=== PATIENT | male | born 1945 | race Caucasian/White ===

== ENCOUNTER 2019-12-16 06:31 | Day surgery (SDC) | payer OTHER, BC ==
[2019-12-11 12:24] VITALS: BMI 24.1
--- OUTSIDE RECORDS SUMMARY | 2019-12-16 06:35 | XMS ---
:1945 Author Organization [facility] Care Team Providers Name Role Phone MD YIFAN ARMANDO Unavailable Unavailable CAROLYNN FAM MD Unavailable Unavailable Tan FAM MD Unavailable Unavailable Schachchristopher Unavailable Unavailable MD Peace Unavailable Unavailable TR PINEDA MD Unavailable Unavailable CRISTEL PINEDA HAmanda Unavailable Unavailable MD Peace Unavailable Unavailable MD Peace Unavailable Unavailable MD TR Unavailable Unavailable MD TR Unavailable Unavailable CRISTEL PINEDA HAmanda Unavailable Unavailable Cho, Y Unavailable Unavailable CRISTEL PINEDA HAmanda Unavailable Unavailable MD Peace Unavailable Unavailable Tan FAM MD Unavailable Unavailable MD TR Unavailable Unavailable MD Peace Unavailable Unavailable MD TR Unavailable Unavailable Care Unavailable Unavailable MD Peace Unavailable MD Peace Unavailable Re-disclosure Warning The records that you are about to access may contain information from federally- assisted alcohol or drug abuse programs. If such information is present, then the following federally mandated warning applies: This information has been disclosed to you from records protected by federal confidentiality rules (42 CFR part 2). The federal rules prohibit you from making any further disclosure of this information unless further disclosure is expressly permitted by the written consent of the person to whom it pertains or as otherwise permitted by 42 CFR part 2. A general authorization for the release of medical or other information is NOT sufficient for this purpose. The Federal rules restrict any use of the information to criminally investigate or prosecute any alcohol or drug abuse patient.The records that you are about to access may contain highly sensitive health information, the redisclosure of which is protected by Article 27-F of the [facility] Public Health law. If you continue you may haveaccess to information: Regarding HIV / AIDS; Provided by facilities licensed or operated by the [facility] Office of Mental Health; or Provided by the [facility] Office for People With Developmental Disabilities. If such information is present, then the following [facility] mandated warning applies: This information has been disclosed to you from confidential records which are protected by state law. State law prohibits you from making any further disclosure of this information without the specific written consent of the person to whom it pertains, or as otherwise permitted by law. Any unauthorized further disclosure in violation of state law may result in a fine or prison sentence or both. A general authorization for the release of medical or other information is NOT sufficient authorization for further disclosure. Allergies and Adverse Reactions Type Description Substance Reaction Status Data Source(s ) 1 CODEINE CODEINE Nausea, Vomiting NEXTGEN ([facility]) D codeine codeine Nausea [facility] Encounters Encounter Providers Location Date Indications Data Source(s ) Outpatient Attender: 12/15/2019 NEXTGEN ([facility] 12:01:00 [facility] [place] [facility] Outpatient Attender: 12/11/2019 NEXTGEN ([facility] 02:18:00 [facility] [place] [facility] Outpatient Attender: 12/10/2019 NEXTGEN ([facility] Joe 04:15:00 [place] [facility] [place] [facility]) Joe Ann Outpatient Attender: 11/16/2019 NEXTGEN ([facility] 08:36:00 [facility] [place] [facility] Outpatient Attender: 11/11/2019 NEXTGEN ([facility] Joe 05:15:00 [place] [facility] [place] [facility]) Joe Ann Outpatient Attender: 10/08/2019 NEXTGEN ([facility] Joe 10:45:00 [place] [facility] [place] [facility]) Joe Ann Outpatient Attender: 09/14/2019 NEXTGEN ([facility] Joe 08:50:00 AM [facility]) Soccer Player Outpatient Attender: 09/10/2019 NEXTGEN ([facility] 02:05:00 PM [facility] [facility]) Outpatient Attender: 09/08/2019 NEXTGEN ([facility] Joe 09:45:00 AM [facility] - [facility] ChoReferrer: [facility]) Joe Cho Outpatient Attender: 09/01/2019 NEXTGEN ([facility] Joe Cho 02:21:00 AM [facility] - [place] [facility]) Outpatient Attender: 08/20/2019 NEXTGEN ([facility] Joe Cho 12:43:00 AM [facility] Outpatient Attender: 08/18/2019 NEXTGEN ([facility] Joe Cho 02:14:00 PM Medical - [facility]) Outpatient Attender: 08/17/2019 NEXTGEN ([facility] Joe Cho 07:04:00 AM [facility] - [place] [facility]) Outpatient Attender: 08/05/2019 NEXTGEN ([facility] Joe Cho 08:05:00 AM Medical - [facility]) Outpatient Attender: 05/12/2019 NEXTGEN ([facility] Joe Cho 08:14:00 AM Medical - [facility]) Outpatient Attender: 05/07/2019 NEXTGEN (Carem [facility] Joe 12:13:00 PM [facility] - [facility] ChoReferrer: [facility]) Soccer Player Outpatient Attender: 05/05/2019 NEXTGEN (Carem [facility] Joe 11:26:00 AM Medical - [place] ChoReferrer: [facility]) Soccer Player Outpatient Attender: 04/09/2019 NEXTGEN ([facility] Joe Cho 08:29:00 AM [facility]) Outpatient Attender: 03/09/2019 NEXTGEN (Carem [facility] Joe Cho 06:24:00 PM Medical - [facility]) Outpatient Attender: 03/09/2019 NEXTGEN ([facility] Joe 04:15:00 PM [facility] [place] ChoReferrer: [facility]) Joe Ann Outpatient Attender: 02/13/2019 NEXTGEN (Carem [facility] Joe 10:15:00 AM [facility] [place] ChoReferrer: [facility]) Joe Ann Outpatient Attender: 01/29/2019 NEXTGEN (Carem [facility] Joe 01:30:00 PM [facility] [place] ChoReferrer: EST [facility]) Joe Ann Outpatient Attender: 01/27/2019 NEXTGEN ([facility] 01:10:00 PM [facility] [place] [facility]) Outpatient Attender: 01/05/2019 NEXTGEN ([facility] 08:33:00 AM [facility] [place] [facility]) Outpatient Attender: 12/29/2018 NEXTGEN ([facility]m [facility] Joe Cho 04:03:00 PM Medical - [place] [facility]) Outpatient Attender: 12/26/2018 NEXTGEN ([facility]m [facility] Joe Cho 12:02:00 PM [facility] [place] [facility]) Outpatient Attender: 12/23/2018 NEXTGEN (Carem o[facility] Joe Cho 09:02:00 AM Medical - [facility] [facility]) Outpatient Attender: 12/17/2018 NEXTGEN (Carem ount Joe 04:30:00 PM Medical - [place] ChoReferrer: [facility]) Joe Ann Outpatient Attender: 12/12/2018 NEXTGEN ([facility] Joe [facility] 09:03:00 AM [facility] [place] [facility]) Outpatient Attender: 12/01/2018 NEXTGEN (Carem o[facility] Joe Cho 08:29:00 AM Medical - [facility] [facility]) Outpatient Attender: 11/20/2018 NEXTGEN ([facility] Timothy [facility]20:00 [facility] : Timothy Boone V Attender: MD PANCHAL XR-AMS 11/18/2018 [place] LEFT EYE [place] [facility] Dior 12:21:33 PM [facility] MD Ovi Velez: MD Ovi Velez: MD Ovi Velez: MD Ovi Velez: MD Ovi Dunbarr: MD Ovi Peterson t: CAROLYNN FAM MDConsultant: CAROLYNN CRISTEL MDConsultant: CAROLYNNABDON FAM MDConsultant: CAROLYNN FAM MDConsultant: CAROLYNN FAM MDConsultant: CAROLYNN FAM MD PHACO LEFT EYE WITH IOL IMPLANT P Attender: MD Ovi PANCHAL XR-AMS 11/17/2018 [place] LEFT EYE N [place] - Agustin: 10:41:18 AM EDT WITH IOL [facility] Robbinbabar Velez: [facility] Ovi Velez: MD Ovi Velez: MD Ovi Velez: MD Ovi Dunbarr: MD Ovi Hand PHACO LEFT EYE WITH IOL IMPLANT P Attender: MD Ovi PANCHAL XR-AMS 11/17/2018 [place] Pr esbyteralejo Velez: 10:00:29 AM EDT - [facility] arthur Velez: MD Ovi Velez: MD Ovi Velez: MD Ovi Velez: MD Ovi Dunbarr: MD Ovi Hand P Attender: MD Ovi PANCHAL XR-AMS 11/14/2018 [place] Pr esbyteralejo Velez: 02:07:19 PM EDT - [facility] Agustin: MD Ovi Velez: MD Ovi Velez: MD Ovi Velez: MD Ovi Kleinferrer: MD Ovi Hand Outpatient Attender: Joe 11/10/2018 NEXTGEN ChoReferrer: Joe 02:45:00 [facility] Attender: Joe Ann 11/10/2018 NEX TGEN 10:20:00 AM EDT ([facility]) V Attender: MD Ovi PANCHAL XR-AMS 11/04/2018 PHAC[place] RT EYE [place] Pres[place] Velez: 11:23:35 AM EDT W/IOL - [facility] IMPLANT Hospital Katherine Velez: MD Ovi Velez: MD Ovi Velez: MD Ovi Velez: MD Ovi Kleinferrer: MD Ovi ThackeriConsultant: MD YIFAN ARMANDOConsultant : MD YIFAN ARMANDO MDConsultant: MD YIFAN Downssultant : MD YIFAN ARMANDOConsultant : MD YIFAN ARMANDOConsultant : MD YIFAN ARMANDO PHACO RT EYE W/IOL IMPLANT P Attender: MD Ovi PANCHAL XR-AMS 10/29/2018 [place]AC[place] RT [place]YE [place] Presby[place] Velez: 01:29:36 PM EDT W/IOL IMPLA NT [facility] Ovi Albertsder: H ospital Center MD Ovi Velez: MD Ovi Velez: MD Ovi Velez: MD Ovi Kleinferrer: MD Oiv Hand PHACO RT EYE W/IOL IMPLANT P Attender: MD Ovi PANCHAL XR-AMS 10/29/2018 PHAC[place] RT EYE [place] - Agustin: 01:14:12 PM EDT W/IOL IMPLA NT [facility] Ovi Albertsder: H ospital Center MD Ovi Velez: MD Ovi Velez: MD Ovi Velez: MD Ovi ThackeriReferrer: MD Ovi Hand PHACO RT EYE W/IOL IMPLANT Medications Medication Brand Start Product Dose Route Administrative Pharmacy atus Indications Reaction Description Data Name Date Form Instructions Instructions Source(s) 2,000 unit one daily RP NEXT GEN 2,000 unit ([facility] ) This may be an active medication. No end date is available. Start date above may not reflect actual date the medication was s tarted. sildenafil 20 SILDENAFIL 11/16/2019 take 2-5 RP NEXTGEN MG Oral Tablet CITRATE 12:00:00 AM tablet by ([facility] 20 mg 20 mg EDT oral route Me dical - [facility] one hour [place] [facility] ) sex This may be an active medication. No end date is available. Ciprofloxacin 500 CIPROFLOXACIN 11/11/2019 take 1 RP NEXTGEN MG Oral Tablet HCL 12:00:00 AM tablet by ([facility] 500 mg 500 mg EDT oral [facility]ica [facility] ) hours This may be an active medication. No end date is available. Metronidazole 500 FLAGYL 11/11/2019 take 1 RP NEXTGEN MG Oral Tablet 12:00:00 AM EDT tablet by ([facility] [Flagyl] 500 mg 500 oral route Medical - Mt mg every 8 [place] [facility] hours Group ) This may be an active medication. No end date is available. Fenofibrate 134 FENOFIBRATE 08/20/2019 TAKE 1 RP NEXTGEN MG Oral Capsule 12:00:00 AM EDT CAPSULE BY ([facility] 134 mg 134 mg MOUTH Medic al - Mt EVERY DAY [facility] WITH FOOD Group [facility]) This may be an active medication. No end date is available. Simvastatin 40 SIMVASTATIN 08/20/2019 TAKE 1 RP NEXTGEN MG Oral Tablet 12:00:00 AM EDT TABLET BY ([facility] 40 mg 40 mg MOUTH Medical - Mt DAILY [facility] ) This may be an active medication. No end date is available. 24 HR Metformin METFORMIN HCL 08/18/2019 take 2 RP NEXTGEN hydrochloride 500 ER 12:00:00 AM tablet by ([facility] MG Extended EDT oral route Me dical - Mt Release Oral every day [facility] Tablet 500 mg 500 Gr oup PC) mg This may be an active medication. No end date is available. pantoprazole 40 PANTOPRAZOLE 08/18/2019 take 1 RP NEXTGEN MG Delayed SODIUM 12:00:00 AM tablet by ([facility] Release Oral EDT oral Medical - Mt Tablet 40 mg 40 route [facility] mg every day Group PC) This may be an active medication. No end date is available. Ramipril 5 MG RAMIPRIL 08/17/2019 TAKE 1 RP NEXTGEN Oral Capsule 5 12:00:00 AM EDT CAPSULE BY ([facility] mg 5 mg MOUTH DAILY Medi gary - [facility] ) This may be an active medication. No end date is available. pantoprazole 40 PANTOPRAZOLE 08/05/2019 TAKE 1 RP NEXTGEN MG Delayed SODIUM 12:00:00 AM TABLET BY ([facility] Release Oral EDT MOUTH Medica l - Mt Tablet 40 mg 40 DAILY [facility] mg Group [facility]) This may be an active medication. No end date is available. pantoprazole 40 PANTOPRAZOLE 05/12/2019 TAKE 1 RP NEXTGEN MG Delayed SODIUM 12:00:00 AM TABLET BY ([facility] Release Oral EDT MOUTH Medica l - Mt Tablet 40 mg 40 EVERY DAY [facility] ) This may be an active medication. No end date is available. empagliflozin 10 JARDIANCE 04/09/2019 take 1 RP NEXTGEN MG Oral Tablet 12:00:00 AM EST tablet by ([facility] [Jardiance] 10 mg oral route Medical - Mt 10 mg every day [facility] in the Group PC) morning This may be an active medication. No end date is available. sildenafil 20 SILDENAFIL 01/29/2019 take 2-5 RP NEXTGEN MG Oral Tablet CITRATE 12:00:00 AM tablet by ([facility] 20 mg 20 mg EST oral route Me dical - Mt one hour [place] [facility] prior to Group PC) sex This may be an active medication. No end date is available. Fenofibrate 134 FENOFIBRATE 01/27/2019 TAKE 1 RP NEXTGEN MG Oral Capsule 12:00:00 AM EST CAPSULE BY ([facility] 134 mg 134 mg MOUTH Medic al - Mt EVERY DAY [facility] gary WITH FOOD Group PC) This may be an active medication. No end date is available. Ramipril 5 MG RAMIPRIL 01/27/2019 TAKE 1 RP NEXTGEN Oral Capsule 5 12:00:00 AM EST CAPSULE BY ([facility] mg 5 mg MOUTH DAILY Medi gary - [facility] ) This may be an active medication. No end date is available. 24 HR Metformin METFORMIN HCL 01/27/2019 TAKE 2 RP NEXTGEN hydrochloride 500 ER 12:00:00 AM TABLETS BY ([facility] MG Extended EST MOUTH Medical - Mt Release Oral TWICE A DAY [place] [facility] Tablet 500 mg 500 WITH THE Group PC) mg MORNING AND EVENING MEALS This may be an active medication. No end date is available. Simvastatin 40 SIMVASTATIN 01/27/2019 TAKE 1 RP NEXTGEN MG Oral Tablet 12:00:00 AM EST TABLET BY ([facility] 40 mg 40 mg MOUTH Medical - [facility] DAILY [facility] [facility]) This may be an active medication. No end date is available. pantoprazole 40 PANTOPRAZOLE 01/05/2019 TAKE 1 RP NEXTGEN MG Delayed SODIUM 12:00:00 AM TABLET BY ([facility] Release Oral EST MOUTH Medica l - Mt Tablet 40 mg 40 EVERY DAY [place] [facility]) This may be an active medication. No end date is available. Zymaxid [id number] 11/18/2018 1.0 Left [place] 03:02:00 PM [drp] eye Presbyt erian [facility] Acular 0.5% [id number] 11/18/2018 1.0 Left [place] ophthalmic 03:02:00 PM [drp] eye P [facility] solution [facility] Pred Forte 1% [id number] 11/18/2018 1.0 Left [place] ophthalmic 03:02:00 PM [drp] eye P [facility] suspension [facility] Ketorolac 0.5% [id number] 11/14/2018 [place] Ophthalmic 05:41:29 PM Pr [facility] Solution [facility] gatifloxacin [id number] 11/14/2018 [place] 0.5% ophthalmic 05:41:27 PM [facility] solution [facility] prednisoLONE [id number] 11/14/2018 [place] acetate 05:41:26 PM Presb yterian ophthalmic 1% [facility] Acular 0.5% [id number] 11/04/2018 1.0 Right [place] ophthalmic 02:08:00 PM [drp] eye P [facility] solution [facility] Zymaxid [id number] 11/04/2018 1.0 Right [place] 02:08:00 PM [drp] eye Presbyt erian [facility] Pred Forte 1% [id number] 11/04/2018 1.0 Right [place] ophthalmic 02:08:00 PM [drp] eye P [facility] suspension [facility] empagliflozin Jardiance 25 11/04/2018 25.0 mg Oral [place] 25 MG Oral mg oral tablet 12:15:29 PM [facility] Jardiance 25 mg Vall ey oral tablet [facility] FiberCon 10/23/2018 1.0 tab Oral [place] 11:01:41 AM [facility] pantoprazole 40 pantoprazole 10/23/2018 40.0 mg Oral [place] MG Delayed 40 mg oral 10:57:59 AM [facility] Oral enteric coated [facility] Tablet tablet [place] pantoprazole 40 Hosp ital mg oral enteric Cent er coated tablet fenofibrate [id number] 10/23/2018 143.0 [place] 10:57:48 AM mg [facility] Simvastatin 40 simvastatin 40 10/23/2018 40.0 mg Oral [place] MG Oral Tablet mg oral tablet 10:57:26 AM [facility] sim[facility]atin 40 [facility] son mg oral tablet [facility] Ramipril 5 MG ramipril 5 mg 10/23/2018 5.0 mg Oral [place] Oral Capsule oral capsule 10:57:12 AM [facility] ramipril 5 mg [facility] on oral capsule [facility] Vitamin B12 [id number] 10/23/2018 1000.0 Oral [place] 10:56:29 AM ug [facility] Aspirin 81 MG aspirin 81 mg 10/23/2018 81.0 mg Oral [place] Delayed Release oral enteric 10:56:22 AM [facility] Oral Tablet coated tablet [facility] aspirin 81 mg [place] oral enteric Hospita l coated tablet [facility] Metformin metFORMIN 500 10/23/2018 1000.0 Oral [place] hydrochloride mg oral tablet 10:55:38 AM mg [facility] 500 MG Oral EDT - Maharaj Tablet [place] metFORMIN 500 Hospit al mg oral tablet Cente r Osmotic 24 HR METFORMIN ER 07/28/2018 take 2 RP NEXTGEN Metformin OSMOTIC 12:00:00 AM tablets ([facility] hydrochloride EDT by oral Med ical - Mt 500 MG Extended route [facility] Release Oral twice a Grou p PC) Tablet 500 mg day with 500 mg the morning and evening meals This may be an active medication. No end date is available. Insurance Providers Payer name Policy type Policy ID Covered Covered republican's Policy P daniel / Coverage republican ID relationship to [employer] ormation type [place] GHI PPO [id number] SP [id number] [address] [facility] [id number] MEDICARE [id number] SP [id number] [employer] Group [id number] 401 [employer] PPO MDCR Medicare [id number] Part B Par Providers GHI Group [id number] Health Inc PPO [id number] [facility] [id number] Blue Shield MEDICARE MCR [id number] [facility] [id number] [facility] [id number] Blue Shield MEDICARE MCR [id number] [facility] [id number] [facility] [id number] [facility] Problems, Conditions, and Diagnoses Code Display Name Description Problem Type Effective Data Sour ce(s) Dates 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 12/10/2019 NEXTGE N osteoarthritis of osteoarthritis of 04:15:00 PM ([facility] carpometacarpal carpometacarpal [place] [facility] joint, right hand joint of right [facility]) hand Z01.818 Encounter for other Other specified Diagnosis 12/10/2019 NEXTGEN preprocedural pre-operative 04:15:00 PM ([facility] examination examination [facility]) R10.32 Left lower quadrant LLQ pain Diagnosis 11/11/2019 NEXTG EN pain 05:15:00 PM [facility]) M70.22 Olecranon bursitis, Olecranon bursitis Diagnosis 10/08/19 20 NEXTGEN left elbow of left elbow 10:45:00 AM ([facility]) Z11.59 Encounter for Encounter for Diagnosis 09/08/2019 NEXTGEN screening for other screening for 09:45:00 AM ( [facility] diseases other viral [facility]T [facility] diseases [facility]) 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:45:00 AM ( [facility] other site carcinoma in situ EDT [facility]) K21.9 Gastro-esophageal Gastro-esophageal Diagnosis 09/08/2019 NEXTGEN reflux disease reflux disease 09:45:00 AM ([facility] without esophagitis without EDT Medic [employer] esophagitis [facility]) I10 Essential (primary) Essential Diagnosis 09/08/2019 NEXTG EN hypertension (primary) 09:45:00 AM ([facility]) E78.5 Hyperlipidemia, Hyperlipidemia, Diagnosis 09/08/2019 NEXT GEN unspecified unspecified 09:45:00 AM ([facility]) D69.6 Thrombocytopenia, Thrombocytopenia, Diagnosis 09/08/2019 NEXTGEN unspecified unspecified 09:45:00 AM ([facility] EDT [facility]) E11.22 Type 2 diabetes Type 2 diabetes Diagnosis 09/08/2019 NEXT GEN mellitus with mellitus with 09:45:00 AM (Care[facility] unt diabetic chronic diabetic chronic EDT Ga dical - Sd kidney disease kidney disease [facility]) E11.29 Type 2 diabetes Type 2 diabetes Diagnosis 09/08/2019 NEXT GEN mellitus with other mellitus with 09:45:00 AM ( [facility] diabetic kidney other diabetic EDT Medic [facility] ) Z00.01 Encounter for Annual visit for Diagnosis 09/08/2019 NEXTG EN general adult general adult 09:45:00 AM ([facility] unt medical examination medical EDT Medic [employer] with abnormal examination with [facility] Medical findings abnormal findings Group P C) F17.211 Nicotine dependence, Cigarette nicotine Diagnosis 020 NEXTGEN cigarettes, in dependence in 04:15:00 PM (Care ount remission remission EST [facility]) R63.4 Abnormal weight loss Weight loss Diagnosis 03/09/2019 NEX TGEN 04:15:00 PM ([facility]) S20.211A Contusion of right Contusion of rib Diagnosis 02/13/2019 NEXTGEN front wall of on right side, 10:15:00 AM (Carem ount thorax, initial initial encounter EST [facility] PC) N52.9 Male erectile ED (erectile Diagnosis 01/29/2019 NEXTGEN dysfunction, dysfunction) of 01:30:00 PM (Carem ount unspecified organic origin [facility] PC) R05 Cough Cough Diagnosis 01/29/2019 NEXTGEN 01:30:00 PM ([facility]) 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 Diagnosis 11/20/2018 NEXTGEN hyperpigmentation 11:20:00 AM (Care[facility]) D22.5 Melanocytic nevi of Melanocytic nevi Diagnosis 11/20/2018 NEXTGEN trunk of trunk 11:20:00 AM ([facility]) H25.12 Age-related nuclear Age-related Diagnosis 11/18/2018 [place] P [facility] cataract, left eye nuclear cataract, 12:21:33 P [facility] left eye [facility] J01.90 Acute sinusitis, Acute Diagnosis 11/10/2018 NEXTGEN unspecified non-recurrent 02:45:00 PM [facility] H25.11 Age-related nuclear Age-related Diagnosis 11/04/2018 [place] P [facility] cataract, right eye nuclear cataract, 11:23:35 AM - [facility] right eye T [facility] Surgeries/Procedures Procedure Description Date Indications Data Source(s) ELECTROCARDIOGRAM ELECTROCARDIOGRAM 12/10/2019 NEXTG EN COMPLETE COMPLETE 12:00:00 ([facility]) OFFICE/OUTPATIENT VISIT OFFICE/OUTPATIENT VISIT 12/10/2019 NEXTGEN EST EST 12:00:00 ([facility]) IIV NO PRSV INCREASED AG IIV NO PRSV INCREASED AG 11/11/2019 NEXTGEN IM IM 12:00:00 ([facility]) Administration of Admin influenza virus 11/11/2019 N EXTGEN influenza virus vaccine vac 12:00:00 ([facility]) Prostate cancer Prostate ca screening; 09/08/2019 [place] XTGEN screening; digital shannon 12:00:00 (Caremi[facility] t rectal examination [facility]) Annual wellness visit, Ppps, subseq visit 09/08/2019 NEXTGEN includes a personalized 12:00:00 (Car [facility] [facility] prevention plan of [facility] service (pps), [facility]) OFFICE/OUTPATIENT VISIT OFFICE/OUTPATIENT VISIT 12/17/2018 NEXTGEN EST EST 12:00:00 ([facility]) Results ID Date Data Source [id number] 12/12/2019 12:11:00 PM EDT [facility] Name Value Range Interpretation Description Data Sup porting Code Source(s) Document(s ) SARS [facility] coronavirus 2 RNA This lab was ordered by [facility] and reported by [facility]. ID Date Data Source [id number] 11/18/2018 01:03:00 PM EDT [facility] [id number] [facility] Name Value Range Interpretation Description Data Source(s ) Supporting Code Document(s ) POC Glu 105 mg/dL Normal (applies to [place] [facility] non-numeric - [facility] results) Hospital Center ID Date Data Source [id number] 11/04/2018 12:48:00 PM EDT [facility] [id number] [facility] Name Value Range Interpretation Description Data Source(s ) Supporting Code Document(s ) POC Glu 102 mg/dL Normal (applies to [facility] non-numeric - [facility] results) [facility] Procedure Vital Signs ID Date Data Source UNK Name Value Range Interpretation Code Description Data Source(s) Diastolic blood 78 mm[Hg] Normal (applies to 78 mm[Hg] [place] [facility] non-numeric results) [facility] Systolic blood 126 mm[Hg] Normal (applies to 126 mm[Hg] [place] [facility] [place] non-numeric results) [facility] Respiratory rate 18 br/min Normal (applies to 18 br/min [place] [facility] - non-numeric results) [facility] Peripheral Pulse 82 bpm Normal (applies to 82 bpm [place] [facility] - Rate non-numeric results) [facility] Body temperature 97.2 [degF] Normal (applies to 97.2 [degF ] [place] [facility] - non-numeric results) [facility] Diastolic blood 72 mm[Hg] Normal (applies to 72 mm[Hg] [place] [facility] non-numeric results) [facility] Systolic blood 113 mm[Hg] Normal (applies to 113 mm[Hg] [place] [facility] [place] non-numeric results) [facility] Respiratory rate 18 br/min Normal (applies to 18 br/min [place] [facility] - non-numeric results) [facility] Peripheral Pulse 75 bpm Normal (applies to 75 bpm [place] [facility] - Rate non-numeric results) [facility] Mean blood 94 mm[Hg] 94 mm[Hg] [place] [facility] - pressure [facility] Diastolic blood 80 mm[Hg] Normal (applies to 80 mm[Hg] [place] [facility] - pressure non-numeric results) [facility] Systolic blood 123 mm[Hg] Normal (applies to 123 mm[Hg] [place] [facility] [place] non-numeric results) [facility] Respiratory rate 18 br/min Normal (applies to 18 br/min [place] [facility] - non-numeric results) [facility] Peripheral Pulse 77 bpm Normal (applies to 77 bpm [place] [facility] - Rate non-numeric results) [facility] Body mass index 22.81 m2 22.81 m2 [place] [facility] - (BMI) [Ratio] [facility] Body surface area 1.89 1.89 [facility] Body weight 72.27 kg 72.27 kg [place] [facility] - Measured [facility] Body height 178 cm 178 cm [facility] Mean blood 90 mm[Hg] 90 mm[Hg] [place] [facility] [place] pressure [facility] Body temperature 97.4 [degF] Normal (applies to 97.4 [degF ] [place] [facility] - non-numeric results) [facility] Body height 178.000 cm 178.000 cm [facility] Body weight 72.270 kg 72.270 kg [place] [facility] - Measured [facility] Body mass index 22.95 m2 22.95 m2 [place] [facility] - (BMI) [Ratio] [facility] Body surface area 1.9 1.9 [facility] Body weight 72.72 kg 72.72 kg [place] [facility] - Measured [facility] Body height 178 cm 178 cm [facility] Body height 178.000 cm 178.000 cm [facility] Body weight 72.720 kg 72.720 kg [facility] Mean blood 78 mm[Hg] 78 mm[Hg] [place] [facility] - pressure [facility] Peripheral Pulse 68 bpm Normal (applies to 68 bpm [place] [facility] - Rate non-numeric results) [facility] Diastolic blood 64 mm[Hg] Normal (applies to 64 mm[Hg] [place] [facility] - pressure non-numeric results) [facility] Systolic blood 106 mm[Hg] Normal (applies to 106 mm[Hg] [place] [facility] [place] non-numeric results) [facility] Respiratory rate 17 br/min Normal (applies to 17 br/min [place] [facility] - non-numeric results) [facility] Peripheral Pulse 70 bpm Normal (applies to 70 bpm [place] [facility] - Rate non-numeric results) [facility] Mean blood 81 mm[Hg] 81 mm[Hg] [place] [facility] - pressure [facility] Diastolic blood 62 mm[Hg] Normal (applies to 62 mm[Hg] [place] [facility] - pressure non-numeric results) [facility] Systolic blood 119 mm[Hg] Normal (applies to 119 mm[Hg] [place] [facility] pressure non-numeric results) [facility] Respiratory rate 16 br/min Normal (applies to 16 br/min [place] [facility] - non-numeric results) [facility] Body temperature - 97.1 [degF] 97.1 [degF] [facility] - Temporal artery [facility] Mean blood 69 mm[Hg] 69 mm[Hg] [place] [facility] - pressure [facility] Diastolic blood 51 mm[Hg] Below low normal 51 mm[Hg] [place] [facility] pressure [facility] Systolic blood 105 mm[Hg] Normal (applies to 105 mm[Hg] [place] [facility] [place] pressure non-numeric results) [facility] Respiratory rate 14 br/min Normal (applies to 14 br/min [place] [facility] - non-numeric results) [facility] Peripheral Pulse 71 bpm Normal (applies to 71 bpm [place] [facility] - Rate non-numeric results) [facility] Body temperature - 97.4 [degF] 97.4 [degF] [facility] - Temporal artery [facility] r Body temperature - 97.2 [degF] 97.2 [degF] [place] [facility] - [facility] Body mass index 23.1 m2 23.1 m2 [place] [facility] - (BMI) [Ratio] [facility] Body surface area 1.9 1.9 [facility] Body weight 73.18 kg 73.18 kg [facility] an - [facility]asured [facility] Body height 178 cm 178 cm [facility] Body height 178.000 cm 178.000 cm [facility] Body weight 73.180 kg 73.180 kg [facility] an - [facility]asured [facility] Body height 178.000 cm 178.000 [facility] Body weight 73.180 kg 73.180 kg [facility] an - [facility] Body mass index 23.1 m2 23.1 m2 [place] [facility] - (BMI) [Ratio] [facility] Body surface area 1.9 1.9 [facility] Body weight 73.18 kg 73.18 kg [facility] an - [facility] Body height 178 cm 178 [facility] Patient Treatment Plan of Care Planned Activity Planned Date Details Description Data Source (s) Acular 0.5% ophthalmic 11/18/2018 [place] [facility] - solution 03:02:00 PM EDT [facility] Pred Forte 1% ophthalmic 11/18/2018 [place] [facility] - suspension 03:02:00 PM EDT [facility] Zymaxid 11/18/2018 [place] [facility] - 03:02:00 PM EDT [facility] Ketorolac 0.5% 11/14/2018 [facility] an - Ophthalmic Solution 05:41:29 PM EDT [facility] gatifloxacin 0.5% 11/14/2018 [place] [facility] - ophthalmic solution 05:41:27 PM EDT [facility] prednisoLONE acetate 11/14/2018 [place] [facility] - ophthalmic 1% suspension 05:41:26 PM EDT [facility] Acular 0.5% ophthalmic 11/04/2018 [place] [facility] - solution 02:08:00 PM EDT [facility] Pred Forte 1% ophthalmic 11/04/2018 [place] [facility] - suspension 02:08:00 PM EDT [facility] Zymaxid 11/04/2018 [place] [facility] - 02:08:00 PM EDT [facility] empagliflozin 25 MG Oral 11/04/2018 [place] [facility] - Tablet 12:15:29 PM EDT [facility] FiberCon 10/23/2018 [place] [facility] - 11:01:41 AM EDT [facility] pantoprazole 40 MG 10/23/2018 [place] [facility] - Delayed Release Oral 10:57:59 AM EDT [facility] fenofibrate 10/23/2018 [place] [facility] - 10:57:48 AM EDT [facility] Simvastatin 40 MG Oral 10/23/2018 [place] [facility] - Tablet 10:57:26 AM EDT [facility] Ramipril 5 MG Oral 10/23/2018 [place] [facility] - Capsule 10:57:12 AM EDT [facility] Vitamin B12 10/23/2018 [place] [facility] - 10:56:29 AM EDT [facility] Aspirin 81 MG Delayed 10/23/2018 [place] [facility] - Release Oral Tablet 10:56:22 AM EDT [facility] Metformin hydrochloride 10/23/2018 [place] [facility] - 500 MG Oral Tablet 10:55:38 AM EDT [facility]
[2019-12-16 07:01] VITALS: TEMP 97.6
[2019-12-16] MEDS ORDERED: BUPIVACAINE HCL/PF 0.25% (2.5MG/ML) 10 ML VIAL ONE (07:12)
[2019-12-16] MEDS ORDERED: GUM MASTIC/STORAX/MSAL/ALCOHOL 1 DRP DROPSBTL MC ONE (07:13)
[2019-12-16] MEDS ORDERED: ROPIVACAINE HCL 0.5% 30ML VIAL ONE (07:22)
[2019-12-16] MEDS ORDERED: MIDAZOLAM HCL 2 MG/2 ML SINGLE DOSE VIAL ONE ×2 (07:22→08:26)
[2019-12-16] MEDS ORDERED: ceFAZolin SODIUM 1 GM VIAL ONE (08:12)
[2019-12-16] MEDS ORDERED: BUPIVACAINE HCL/PF 0.25% (2.5MG/ML) 10 ML VIAL IJ ONE (08:32)
--- NOTE | 2019-12-16 10:09 | OP ---
DATE OF OPERATION: 12/16/2019 PREOPERATIVE DIAGNOSIS: Right basal joint osteoarthritis. POSTOPERATIVE DIAGNOSIS: Right basal joint osteoarthritis. OPERATIVE PROCEDURE: 1. Right basal joint arthroplasty. 2. Right thumb carpometacarpal joint tendon transfer. SURGEON: Tara Pascual MD WATCH REPAIR PERSON: CAYDEN Triplett ANESTHESIA: Regional. COMPLICATIONS: None. ESTIMATED BLOOD LOSS: Minimal. INDICATIONS FOR PROCEDURE: This is a 74-year-old male with the above finding, indicated for operative treatment. Risks, benefits and alternatives were discussed with him at length. Proper informed consent was obtained. PROCEDURE: After proper identification of patient and correct operative site, patient was brought to the operating room, placed supine on the table, prominences well padded. Sedation and regional anesthesia were given. Intravenous antibiotics given. Timeout procedure was performed. Right upper extremity was prepped and draped in usual sterile fashion. Well-padded tourniquet was placed through a sterile prep. Esmarch bandage to exsanguinate right upper extremity. Tourniquet was inflated to 250 mmHg. A Gary incision and approach was made. Incision was taken sharply through the skin with blunt and sharp dissection through subcutaneous tissues. Neurovascular structures were carefully protected. Thenar muscle was elevated off of the carpometacarpal joint. Longitudinal capsulotomy was performed at the carpometacarpal joint. Severe arthrosis of the basal joint was noted. Using subperiosteal dissection the trapezium was excised in whole. Severe bone spurring was noted and this was all debrided as well. Flexor carpi radialis tendon was intact. Trapezoid index metacarpal appeared to be fused. There was no significant arthritis at the scaphoid trapezoid articulation. Arthroplasty space was satisfactory. At this point suspension plasty was performed by placing an Arthrex internal brace with 1 anchor in the base of the index metacarpal and one at the base of the thumb metacarpal with the thumb held in appropriate tension. Once this was performed, excellent arthroplasty space was maintained and normal range of motion of the thumb was achieved. The capsule was repaired and the abductor pollicis longus tendon was transferred to the dorsal aspect of the capsule for augmentation of the repair. Thumb was again taken through range of motion and found to have satisfactory alignment and motion. The wound was repaired in layers using 4-0 Vicryl and 4-0 Monocryl. Steri-Strips and sterile dressings were applied. Patient was reversed from anesthesia, brought to recovery room in stable condition. He tolerated the procedure well. Hugh Suarez, the training program assistant, was integral throughout this procedure. He was especially critical in providing proper tensioning while the repair was performed. This could not have been performed without a skilled operative training program assistant. TARA PASCUAL M.D. [id number]
[2019-12-16 10:26] VITALS: BP 132/76; PULSE 72
[2019-12-16] MEDS ORDERED: oxyCODONE HCL 5 MG TABLET PO PRN ×2 (13:26)
[2019-12-16] MEDS ORDERED: ONDANSETRON 4 MG/2 ML VIAL IVPUSH PRN (13:26)
[2019-12-16] MEDS ORDERED: LACTATED RINGERS SOLUTION 1,000 ML IV SCH (13:30)
== END 2019-12-16 10:15 | disposition home or self-care (01) ==
LOC: FASU 06:31
PROVIDERS: ATTEND Orthopaedic Surgery Hand Surgery
PROC: 0RQS0ZZ Repair Right Carpometacarpal Joint, Open Approach (ICD-10-PCS; 2019-12-16)
PROC: 0LX70ZZ Transfer Right Hand Tendon, Open Approach (ICD-10-PCS; principal; 2019-12-16 08:28)
DX: M18.11 Unilateral primary osteoarthritis of first carpometacarpal joint, right hand (principal)
CPT/HCPCS: 82962